=== PATIENT | male | born 1995 | race Caucasian/White ===

== ENCOUNTER 2025-07-29 10:42 | Emergency (ER) | payer OTHER ==
[~2025-07-29] VITALS: Ht 175.3 cm; Wt 76.2 kg
[2025-07-29] MEDS ORDERED: OMEP40CA4 PO (11:12)
[2025-07-29 11:40] LABS: BASO # 0.0 10^3/uL (0.0-0.2); BASO % 0.6 % (0.0-1.0); EOS # 0.1 10^3/uL (0.0-0.5); EOS % 1.7 % (0.0-3.0); LYMPH # 1.2 10^3/uL (1.5-5.0); LYMPH % 22.7 % (24.0-44.0); MONO # 0.5 10^3/uL (0.0-0.8); MONO % 9.9 % (2.0-8.0); NEUTROPHILS # 3.5 10^3/uL (1.5-8.5); NEUTROPHILS % 64.7 % (36.0-66.0); PLATELET COUNT, AUTOMATED 166 10^3/uL (150-450)
[2025-07-29 12:08] LABS: ALT/SGPT 34 U/L (7.0-40); AST/SGOT 24 U/L (<34); CALCIUM LEVEL 8.9 MG/DL (8.5-10.1); CARBON DIOXIDE LEVEL 26 MMOL/L (20-31); CHLORIDE LEVEL 103 MMOL/L (98-107); CK-MB VALUE MASS 1.2 NG/ML (<3.6); CREATININE FOR GFR 0.88 MG/DL (0.70-1.30); GLOMERULAR FILTRATION RATE > 90.0 (>60); POTASSIUM SERUM 4.4 MMOL/L (3.5-5.1); SODIUM LEVEL 138 MMOL/L (136-145)
[2025-07-29 12:10] LABS: CPK CREATINE PHOSPHOKINASE 96 U/L (46-171); FREE T4 1.35 NG/DL (0.89-1.76); MB/CK RELATIVE INDEX 1.25 (< OR =4)
[2025-07-29 13:30] LABS: CK-MB VALUE MASS 1.0 NG/ML (<3.6); CPK CREATINE PHOSPHOKINASE 121 U/L (46-171); MB/CK RELATIVE INDEX 0.82 (< OR =4)
[2025-07-29] MEDS ORDERED: HOLTER MONITOR XX (14:07)
[2025-07-29 14:16] VITALS: BP 113/65; TEMP 98.4; O2SAT 95
== END 2025-07-29 14:52 | disposition home or self-care (01) ==
LOC: M ED 10:42 → EDBD 10:42 → M ED 14:52
DX: R00.2 Palpitations (principal); K21.9 Gastro-esophageal reflux disease without esophagitis; Z79.899 Other long term (current) drug therapy

== ENCOUNTER → 2025-07-29 | Outpatient (CLI) | payer OTHER ==
[~2025-07-29] MED LIST: HOLTER MONITOR XX; OMEP40CA4 PO
== END ==
LOC: M EKG 15:04
DX: R00.2 Palpitations (principal); Z53.9 Procedure and treatment not carried out, unspecified reason